=== PATIENT | male | born 1995 | race Caucasian/White ===

== ENCOUNTER 2016-11-12 00:07 | Inpatient (IN) | payer OTHER, BC ==
[2016-11-12] MEDS ORDERED: Sodium Chloride 0.9% 1,000 ML IV ONE (00:14)
[2016-11-12] MEDS ORDERED: Sodium Chloride 0.9% 2.5 ML Syringe FLUSH PRN (00:14)
[2016-11-12] MEDS ORDERED: Ondansetron 4 MG/2 ML SDV IVPUSH ONE (00:14)
[2016-11-12] MEDS ORDERED: Sodium Chloride 0.9% 10 ML Syringe FLUSH PRN (00:14)
[2016-11-12] MEDS ORDERED: Morphine 10 MG/ML Syringe IV ONE (00:14)
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
[2016-11-12 01:46] LABS: CHLORIDE,CL 108 mmol/L (98-110); SODIUM,NA 139 mmol/L (136-146)
[2016-11-12] MEDS ORDERED: Iopamidol 755 Mg/ML 100 ML Bottle IVPUSH STA (01:48)
[2016-11-12] MEDS: Lactated Ringers 1,000 ML IV SCH ×3 (03:14→23:51)
[2016-11-12] MEDS: HYDROmorphone 2 MG Tab PO PRN ×3 (04:16→19:06)
[2016-11-12] MEDS ORDERED: Pneumococcal Polyvalent-23 Vaccine 0.5 ML SDV IM ONE (06:56)
--- NOTE | 2016-11-12 11:04 | PCM.SN ---
- Free Text/Narrative Note: pt seen, chart reviewed; h/p dictated; [id number]
--- NOTE | 2016-11-12 13:10 | CR ---
EXAMINATION: Expiration chest radiograph. HISTORY: Pneumothorax. Comparison 11/12/2016. FINDINGS: The trachea is midline. The cardiomediastinal silhouette is stable. There is a right-sided pneumotho rax measuring 1 cm at the apex, grossly unchanged from the radiograph from earlier today. Infiltrate is noted within the right lung base consistent with a pulmonary contusion. The previously demonstrated right rib fractures are not well characterized. Mid right clavicle fract ure is noted. IMPRESSION: 1. Small right pneumothorax, stable, measuring 1 cm at the apex. 2. Infiltrate within the right lung base consistent with a pulmonary contusion, also stable. 3. Mid right clavicle fracture.
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
--- NOTE | 2016-11-12 13:57 | PCM.SN ---
- Free Text/Narrative Note: small r ptx persisted, not worsen; will repeat cxr, upright in the morning;
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
[2016-11-13] MEDS: HYDROmorphone 2 MG Tab PO PRN ×2 (01:35→11:27)
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
--- NOTE | 2016-11-13 12:31 | CR ---
EXAMINATION: Right clavicle HISTORY: Fracture COMPARISON: 11/12/2016 TECHNIQUE: Single view FINDINGS/IMPRESSION: There is a minimally displaced comminuted mid right clavicle fracture identifie d. The remaining osseous structures appear intact.
--- NOTE | 2016-11-13 13:02 | CR ---
EXAM DATE: 11/12/16 PATIENT'S AGE: 20 Patient: TREV ROBLES Facility: [place], [place] Site . Site : 1995 Study: XRay Chest [id number]/28/2017 7:16:07 AM Ordering Physician: Sherice Alexander Final Report: Indication: Pneumothorax Technique: Chest 1 view Comparison: 11/12/2016 Findings/Impression: Cardiovascular and mediastinum: Heart size and vasculature are normal in caliber and appearance. Mediastinum is within normal limits. Lungs and pleural space: There is a questionable minimal right apical pneumothorax. Right lung pulmonary contusions have improved. Remainder of the lungs and pleural spaces are clear. Bones and soft tissues: No acute findings. Dictated by Neal Soliz MD @ Nov 13 2016 7:24AM (Electronic Signature) Report Signed by Proxy and Original Signed Document filed in the Medical Record. NAVA
[2016-11-13] MEDS: Acetaminophen/oxyCODONE 325-5 MG Tab PO PRN (13:53)
[2016-11-14 08:34] VITALS: BP 130/73
--- NOTE | 2016-11-14 09:09 | CR ---
EXAMINATION: PA upright chest radiograph. HISTORY: Pneumothorax. FINDINGS: The trachea is midline. The cardiomediastinal silhouette is within normal limits. Mild residual righ t lung base consolidation with there is no residual right-sided pneumothorax. No pleural effusion. Mid right clavicle fracture. The previously demonstrated right rib fractures are not well characteri zed. IMPRESSION: 1. No residual right apical pneumothorax. 2. Mild residual right pulmonary contusion. 3. Mid right clavicle fracture.
[2016-11-14] MEDS ORDERED: Bisacodyl 10 MG Supp RECTAL ONE (10:01)
[2016-11-14] MEDS: Acetaminophen/oxyCODONE 325-5 MG Tab PO PRN (11:02)
--- NOTE | 2016-11-14 14:28 | PCM.SN ---
- Free Text/Narrative Note: dc summary [id number]
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
== END 2016-11-14 11:15 | disposition home or self-care (01) | DRG 563 ==
LOC: MW.ED 00:07 → MW.ICU 01:49 → MW.MS 11-13 08:24
PROVIDERS: ADMIT Surgery; ATTEND Surgery
DX: S42.001A Fracture of unspecified part of right clavicle, initial encounter for closed fracture (principal); S22.41XA Multiple fractures of ribs, right side, initial encounter for closed fracture; S27.0XXA Traumatic pneumothorax, initial encounter; S27.321A Contusion of lung, unilateral, initial encounter; V28.4XXA Motorcycle driver injured in noncollision transport accident in traffic accident, initial encounter
CPT/HCPCS: 36415; 70450; 70450-26; 71010; 71010-26; 71035; 71035-26; 71260; 71260-26; 72125; 72125-26; 72128; 72128-26; 73000-26-RT; 73000-RT; 73030-26-RT; 73030-RT; 74177; 74177-26; 80053; 81001; 85025; 85610; 93005; 96361; 96374; 96375; 99283; 99285-25; A9270-GY; G0390; J2270; J2405; J7040; J7120; Q9967